=== PATIENT | male | born 1960 | race Caucasian/White ===

== ENCOUNTER → 2016-11-21 | Emergency (ER) | payer BC ==
[~2016-11-21] MED LIST: ATROPINE SULFATE 1 MG/10 ML SYR IVP ONE; ATROPINE SULFATE 1 MG/ML VIAL IVP ONE; CALCIUM CHLORIDE 1 GM/10 ML INJ IV ONE; EPINEPHrine 1 MG/10 ML SYR IVP ONE; SODIUM BICARBONATE 50 MEQ/50 ML SYR IVP ONE
--- NOTE | 2016-11-21 14:55 | EDPHY ---
H & P Stated Complaint: code Time Seen by Provider: 11/21/16 14:29 HPI/ROS: CHIEF COMPLAINT: Cardiac arrest HISTORY OF PRESENT ILLNESS: The patient is a 56-year-old gentleman who presents to the ED with a witnessed cardiac arrest. The patient had traveling to [place] to drop his son off at [employer]. He reportedly drove through the night from his early. They arrived late, the patient had poor sleep last night. Apparently the patient had been complaining of dyspnea throughout the morning. The patient was witnessed by his to collapse approximately 35 minutes prior to arrival. Paramedics were contacted and the patient was noted to be in ventricular tachycardia. He was pulses that point time. CPR was started. The patient was cardioverted into an asystolic rhythm. Additional ALS medications were given including epinephrine additional CPR. The patient converted to a PA rhythm. The patient apparently had an additional bout of ventricular fibrillation which was again cardioverted by the pre-hospital service. The patient returned to a PE a rhythm which was present upon arrival. REVIEW OF SYSTEMS: Unobtainable secondary to altered mental status Source: Family - Personal History Current Tetanus/Diphtheria Vaccine: Unsure Current Tetanus Diphtheria and Acellular Pertussis (TDAP): Unsure - Medical/Surgical History Hx Asthma: No Hx Chronic Respiratory Disease: No Hx Diabetes: No Hx Cardiac Disease: No Hx Renal Disease: No Hx Cirrhosis: No Hx Alcoholism: No Hx HIV/AIDS: No Hx Splenectomy or Spleen Trauma: No Other PMH: Past medical history: Unknown - Social History Smoking Status: Unknown if ever smoked - Physical Exam Exam: General Appearance: Obtunded, unresponsive, pale Eyes: Fixed, dilated unreactive ENT, Mouth: Mucous membranes moist Respiratory: No spontaneous respirations, [id number] ventilation by EMS Cardiovascular: Absent cardiac breath sounds Gastrointestinal: Distended protuberant abdomen Neurological: GCS 3 Skin: Cool, mottled Musculoskeletal: No gross deformity Extremities: No gross deformity Medical Decision Making Procedures: Procedure: RSI Intubation Indication for the procedure was cardiac arrest. The patient was preoxygenated with 100% oxygen by face mask. The patient was orally endotracheally intubated under direct visualization with a 8.0 ETT. Tracheal intubation was confirmed with misting on the tube; breath sounds were auscultated equally bilaterally; appropriate color change with [employer] CO2 detector and equal breath sounds. Procedure: CPR The patient received 16 minutes of CPR while in the emergency department. Procedure: Limited transthoracic echocardiogram. A limited transthoracic echocardiogram was performed and interpreted by myself for cardiac arrest. Limited transthoracic echocardiogram: The pericardium was visualized and found to be negative for pericardial fluid. Cardiac activity was absent. The study was negative for pericardial effusion. The study demonstrated absence of cardiac activity. ED Course/Re-evaluation: Patient arrives with active CPR in progress. The patient was placed on a groundwater monitoring technician. He was noted to be in a PA rhythm. The patient had an IO line in his left leg. The patient received additional IV epinephrine, bicarb and calcium. CPR was continued. The patient was intubated by myself using an 8 0 ET tube. The patient received additional CPR. The patient had brief return of spontaneous circulation which was self-limited. The patient was noted to return to a PE a rhythm. The patient received several additional rounds of epinephrine. At 2:45 p.m., the patient was noted to be persistently pulses. He continued to be in a PA rhythm. CPR was stopped. His was in the room. The patient has had prolonged CPR continues to have a PE a rhythm and has no cardiac activity noted on his ultrasound. Patient was pronounced at 2:45 p.m.. - Data Points Laboratory Results: 11/21/16 14:36 POC Hgb 16.0 gm/dL gm/dL (13.7-17.5) POC Hct 47 % % (40-51) POC Sodium 140 mEq/L mEq/L (134-144) POC Potassium 4.8 mEq/L mEq/L (3.3-5.0) POC Chloride 101 mEq/L mEq/L (97-110) POC BUN 32 mg/dL H mg/dL (7-23) POC Creatinine 1.3 mg/dL mg/dL (0.7-1.3) POC Glucose 148 mg/dL H mg/dL (70-100) Medications Given: Discontinued Medications Atropine Sulfate (Atropine Sulfate) 1 mg IVP EDNOW ONE Stop: 11/21/16 14:38 Last Admin: 11/21/16 14:39 Dose: Not Given Atropine Sulfate (Atropine 1 Mg/10 Ml Syringe) 1 mg IVP EDNOW ONE Stop: 11/21/16 14:40 Last Admin: 11/21/16 14:39 Dose: 1 mg Calcium Chloride (Calcium Chloride) 1 gm IV EDNOW ONE Stop: 11/21/16 14:36 Last Admin: 11/21/16 14:37 Dose: 1 gm Epinephrine HCl (Epinephrine) 1 mg IVP EDNOW ONE Stop: 11/21/16 14:37 Last Admin: 11/21/16 14:37 Dose: 1 mg Epinephrine HCl (Epinephrine) 1 mg IVP EDNOW ONE Stop: 11/21/16 14:44 Last Admin: 11/21/16 14:49 Dose: 1 mg Sodium Bicarbonate (Sodium Bicarbonate) 50 meq IVP EDNOW ONE Stop: 11/21/16 14:35 Last Admin: 11/21/16 14:38 Dose: 50 meq Point of Care Test Results: 11/21/16 14:36 POC Sodium 140 POC Potassium 4.8 POC Chloride 101 POC BUN 32 H POC Creatinine 1.3 POC Glucose 148 H Departure - Departure Disposition: Clinical Impression: Cardiac arrest Condition: Critical Referrals: Patient,NotPresent [Primary Care Provider] - As per Instructions
== END | disposition expired ==
PROC: 0BH17EZ Insertion of Endotracheal Airway into Trachea, Via Natural or Artificial Opening (ICD-10-PCS; principal; 2016-11-21)
DX: I46.9 Cardiac arrest, cause unspecified (principal)
CPT/HCPCS: 82947-QW; 96374